=== PATIENT | male | born 1960 | race Caucasian/White ===

== ENCOUNTER 2024-10-01 19:17 | Emergency (ER) | payer OTHER, SELFPAY ==
[2024-10-01] VITALS (10 sets, daily range): BP systolic 130–188; BP diastolic 86–108; PULSE 60–90; RESP 16; TEMP 36.7; O2SAT 97–99; BMI 27.8
[2024-10-01] MEDS: OXYMETAZOLINE NASAL SPRAY 30 ML 2 SPRAYS NASAL (19:37)
[2024-10-01] MEDS: cloNIDine 0.1 MG TABLET PO (21:19)
[2024-10-01 21:24] LABS: Add Manual Diff / Slide Review NO; Basophils Absolute Auto 100 /uL (0-100); Basophils Percent Auto 0.7 % (0-2); Eosinophils Absolute Auto 100 /uL (0-450); Eosinophils Percent Auto 1.3 % (2-4); Hematocrit 40.6 % (41-53); Hemoglobin 13.8 g/dL (13.5-17.5); Lymphocytes Absolute Auto 1900 /uL (1100-4500); Lymphocytes Percent Auto 24.7 % (25-40); Mean Corpuscular Hemoglobin 31.6 PG (26-34); Monocytes Absolute Auto 600 /uL (0-900); Monocytes Percent Auto 7.2 % (3-14); Neutrophils Absolute Auto 5100 /uL (1500-7000); Neutrophils Percent Auto 66.1 % (50-75); Platelet Count 185 X10^3/uL (150-400); Red Blood Cell Count 4.36 X10^6/uL (4.5-5.9); Red Cell Distribution Width 14.3 % (11.6-14.8); White Blood Cell Count 7.8 X10^3/uL (4.5-11.0)
[2024-10-01 21:27] LABS: INR 0.9 (0.9-1.3); Prothrombin Time 10.4 SECONDS (9.4-12.5)
[2024-10-01 21:33] LABS: Alanine Aminotransferase 28 IU/L (<50); Albumin 4.2 g/dL (3.5-5.0); Albumin Globulin Ratio 1.2 (1.0-2.8); Alkaline Phosphatase 61 U/L (38-126); Aspartate Aminotransferase 30 IU/L (17-59); Bilirubin Total 0.5 mg/dL (0.2-1.3); Blood Urea Nitrogen 26 mg/dL (9-20); Carbon Dioxide 24 mmol/L (22-32); Chloride 104 mmol/L (98-107); Estimated Glomerular Filt Rate > 60 mL/min (>60); Globulin 3.4 g/dL (1.7-4.1); Glucose 125 mg/dL (80-110); HEMOLYSIS < 15 (0-50); Potassium 4.1 mmol/L (3.4-5.1); Sodium 133 mmol/L (137-145); Total Protein 7.6 g/dL (6.3-8.2)
--- NOTE | 2024-10-01 22:11 | ED.EPISTAXIS ---
HPI - Epistaxis General Chief complaint: Nasal Problem Stated complaint: nose bleed won't stop Time Seen by Provider: 10/01/24 20:41 Source: patient Mode of arrival: Ambulatory History of Present Illness HPI Narrative: 64-year-old male complains of left nosebleed today, not stopping with pinch maneuver, does not take blood thinner medications, no prior nose lesions or procedures, no bleeding problems known. Some recent stuffy nose symptoms, no use of topical decongestants or other nasal treatments. No rectal bleeding, skin rashes, gross hematuria symptoms, other areas of abnormal bleeding. Related Data Previous Rx's Medication Instructions Recorded pramipexole 0.5 mg tablet 0.5 mg PO BEDTIME #30 tabs 08/17/24 Allergies Allergy/AdvReac Type Severity Reaction Status Date / Time iodine AdvReac Severe Throat Verified 08/17/24 08:49 swelling Sulfa (Sulfonamide AdvReac Severe Rash Unverified 08/17/24 08:49 Antibiotics) Penicillins AdvReac Rash Verified 08/17/24 08:49 shellfish AdvReac Vomitting Uncoded 08/17/24 08:49 Review of Systems Review of Systems Narrative: see HPI Patient History Social History Smoking Status: Never smoker Smoking Status: Never smoker Exam Narrative Exam Narrative: GENERAL: Well-developed patient, in mild distress. HEAD: Atraumatic. Normocephalic. EYES: Pupils equal round and reactive. Extraocular motions intact. No scleral icterus. No injection or drainage. ENT: Nose without active bleeding, after removal of nasal clamp placed at triage. Nasal speculum exam shows clot left nasal septum, no active bleeding. No right-sided nasal bleeding obvious. No gross deformity of the nasal bridge/spine. No raccoon eyes or other obvious facial trauma. NECK: Trachea midline. Non tender CARDIOVASCULAR: Regular rate and rhythm without murmurs, gallops, or rubs. RESPIRATORY: Clear to auscultation. Breath sounds equal bilaterally. No wheezes, rales, or rhonchi. GASTROINTESTINAL: Abdomen soft, non-tender, nondistended. EXTREMITIES: No edema or joint tenderness. BACK: Nontender without deformity or crepitance. No flank tenderness. NEURO: AOx3. Motor functions grossly nonfocal SKIN: No rash or erythema of visible areas Initial Vital Signs Initial Vital Signs: Vital Signs Temperature 98.1 F 10/01/24 19:27 Pulse Rate 90 10/01/24 19:27 Respiratory Rate 16 10/01/24 19:27 Blood Pressure 186/108 H 10/01/24 19:27 Pulse Oximetry 99 10/01/24 19:27 Oxygen Delivery Method Room Air 10/01/24 19:27 Course Orders Ordered: Discontinued Medications Clonidine HCl (Clonidine 0.1 Mg Tablet) 0.1 mg PO NOW ONE Stop: 10/01/24 20:43 Last Admin: 10/01/24 21:19 Dose: 0.1 mg Documented By: Oxymetazoline HCl (Oxymetazoline Nasal [place] 30 Ml) 2 sprays NASAL NOW ONE Stop: 10/01/24 19:35 Last Admin: 10/01/24 19:37 Dose: 2 sprays Documented By: MOY Vital Signs Vital signs: Vital Signs - 8 hr 10/01/24 19:27 10/01/24 19:58 10/01/24 19:58 Temperature 98.1 F Pulse Rate 90 89 Respiratory Rate 16 Blood Pressure 186/108 H 188/107 H Pulse Oximetry 99 99 Oxygen Delivery Method Room Air 10/01/24 20:00 10/01/24 20:00 10/01/24 20:30 Temperature Pulse Rate 84 73 Respiratory Rate Blood Pressure 187/106 H Pulse Oximetry 99 97 Oxygen Delivery Method 10/01/24 20:30 10/01/24 20:50 10/01/24 20:50 Temperature Pulse Rate 72 Respiratory Rate Blood Pressure 158/96 H 169/96 H Pulse Oximetry 97 Oxygen Delivery Method 10/01/24 21:00 10/01/24 21:00 10/01/24 21:30 Temperature Pulse Rate 62 Respiratory Rate Blood Pressure 157/96 H 151/98 H Pulse Oximetry 97 Oxygen Delivery Method Room Air 10/01/24 21:30 10/01/24 22:00 10/01/24 22:00 Temperature Pulse Rate 78 69 Respiratory Rate Blood Pressure 165/94 H Pulse Oximetry 98 97 Oxygen Delivery Method 10/01/24 22:30 10/01/24 22:30 10/01/24 23:00 Temperature Pulse Rate 60 Respiratory Rate Blood Pressure 141/91 H 130/86 Pulse Oximetry 97 Oxygen Delivery Method 10/01/24 23:00 Temperature Pulse Rate 73 Respiratory Rate Blood Pressure Pulse Oximetry 97 Oxygen Delivery Method Room Air MDM - Epistaxis Lab Data Attestation: I reviewed the patient's lab results. Lab results narrative: White blood cell count 7100, hemoglobin 13.8, platelets [id number]. Renal function unremarkable. Sodium 133 slightly low. INR 0.9 normal. 10/01/24 21:00 10/01/24 21:00 Labs: Lab Results 10/01/24 Range/Units 21:00 WBC 7.8 (4.5-11.0) X10^3/uL RBC 4.36 L (4.5-5.9) X10^6/uL Hgb 13.8 (13.5-17.5) g/dL Hct 40.6 L (41-53) % MCV 93.0 (80-100) fL MCH 31.6 (26-34) PG MCHC 34.0 (30-36) % RDW 14.3 (11.6-14.8) % Plt Count 185 (150-400) X10^3/uL Neut % (Auto) 66.1 (50-75) % Lymph % (Auto) 24.7 L (25-40) % [place] % (Auto) 7.2 (3-14) % Eos % (Auto) 1.3 L (2-4) % Baso % (Auto) 0.7 (0-2) % Neut # (Auto) 5100 (7297-3992) /uL Lymph # (Auto) 1900 (0347-3591) /uL [place] # (Auto) 600 (0-900) /uL Eos # (Auto) 100 (0-450) /uL Baso # (Auto) 100 (0-100) /uL PT 10.4 (9.4-12.5) SECONDS INR 0.9 (0.9-1.3) Sodium 133 L (137-145) mmol/L Potassium 4.1 (3.4-5.1) mmol/L Chloride 104 (98-107) mmol/L Carbon Dioxide 24 (22-32) mmol/L BUN 26 H (9-20) mg/dL Creatinine 0.84 (0.66-1.25) mg/dL Estimated GFR > 60 (>60) mL/min BUN/Creatinine Ratio 31.0 H (6-22) Glucose 125 H (80-110) mg/dL Calcium 9.0 (8.4-10.2) mg/dL Total Bilirubin 0.5 (0.2-1.3) mg/dL AST 30 (17-59) IU/L ALT 28 (<50) IU/L Alkaline Phosphatase 61 (38-126) U/L Total Protein 7.6 (6.3-8.2) g/dL Albumin 4.2 (3.5-5.0) g/dL Globulin 3.4 (1.7-4.1) g/dL Albumin/Globulin Ratio 1.2 (1.0-2.8) MDM Narrative Medical decision making narrative: Left noselbleed anterior, clot along septum left side, not actively bleeding, on exam nasal speculum after topical Afrin and noseclamp from triage. Elevated BP, oral dose Clonidine, BP decreased, nosebleeding stopped without other interventions. Labs sent from triage, negative. Follow-up with ENT advised, return precautions discussed, home with family Discharge Plan Departure Patient Disposition: Home Clinical Impression: Left-sided nosebleed, Elevated blood pressure reading Activity Restrictions/Additional Instructions: Atraumatic left-sided nosebleed tonight, no blood thinner medications taken regularly, no blunt trauma known. Initial elevated blood pressure, not usually on any blood pressure medications. Clonidine medication help bring blood pressure down to help slow down the nose bleeding. Nasal clamp was applied, nasal bleeding stopped. Clamp removed, nasal bleeding still seemed to be staying controlled. On examination with nasal speculum there was clot on the left nasal septum. We did not attempt to remove the clot, as this would likely cause recurrent bleeding. Consider otolaryngology/ENT follow up to reinspect the area once the clot is likely later resolved, make sure there was no underlying lesion of concern that might need biopsy or further evaluation. Consider sleeping upright tonight keep head of bed elevated. Recheck blood pressure with your regular doctor in the next couple of days or early next week. Avoid aspirin other blood thinner medications. Avoid blowing and picking at your nose. Try head tilt finger pinch in clamp maneuver if you have recurrence of nosebleed, recheck in emergency department if not better after 20 30 minutes or if significantly fast brisk bleeding. Follow up with local visual coordinator advised, contact information provided, though you might need referral from your primary care provider. Return earlier to this/nearest emergency department for any change worsening symptoms or any concerns Prescriptions: No Action pramipexole 0.5 mg tablet 0.5 mg PO BEDTIME Qty: 30 3RF Referrals: Leonel Blood MD [Physician] - Provider,Nitesh MORENO [Primary Care Provider] - Stand Alone Forms: Patient Portal/API/Survey
[2024-10-02 00:42] VITALS: BP 117/74; PULSE 68; RESP 16; O2SAT 97
== END 2024-10-02 00:43 | disposition home or self-care (01) ==
PROVIDERS: Emergency Provider Emergency Medicine
DX: R04.0 Epistaxis (principal); R03.0 Elevated blood-pressure reading, without diagnosis of hypertension
CPT/HCPCS: 80053; 85025; 85610; 99283